=== PATIENT | female | born 1955 | race African-American/Black ===

== ENCOUNTER → 2017-02-27 | Outpatient (CLI) | payer MEDICARE, OTHER ==
--- NOTE | 2017-02-27 10:35 | RAD ---
Bone densitometry scan, 02/27/2017: History: Osteoporosis screening, ovarian failure The lumbar spine and right hip were examined utilizing a DEXA technique. The bone mineral density in the lumbar spine as measured from the L1-L4 levels is 1.88 g/sq cm. This yields a T score of 5.9 which is in the normal range. The total T score at the right hip is 2.9. IMPRESSION: Normal bone mineral density measurements.
== END | disposition home or self-care (01) ==
LOC: DXRAD 09:38
PROVIDERS: ATTEND Nurse Practitioner Family
DX: Z13.820 Encounter for screening for osteoporosis (principal); E28.39 Other primary ovarian failure; Z78.0 Asymptomatic menopausal state
CPT/HCPCS: 77080

== ENCOUNTER → 2017-11-08 | Outpatient (CLI) | payer MEDICARE, OTHER ==
--- NOTE | 2017-11-08 13:43 | RAD ---
Pelvis with both hips, 3 views, 11/08/2017: History: Bilateral hip pain There is severe narrowing of both hip joints with subchondral sclerosis, cyst formation and marginal spurring. No fracture or dislocation is identified. There are mild degenerative changes in the lower lumbar spine. IMPRESSION: Severe osteoarthritis at both hip joints.
== END | disposition home or self-care (01) ==
LOC: PMG 12:58
PROVIDERS: ATTEND Nurse Practitioner Family
DX: M16.0 Bilateral primary osteoarthritis of hip (principal)
CPT/HCPCS: 73521

== ENCOUNTER → 2018-06-25 | Outpatient (CLI) | payer MEDICARE, OTHER ==
--- NOTE | 2018-06-25 10:26 | CARD ---
MR#: [id number] Date of Study: 06/25/2018 Ordering Physician: LUBNA NEWELL, Referring Physician: LUBNA NEWELL, Tech: Vera Mo TAHIRA APPROVED REPORT EXAM: Two-dimensional and M-mode echocardiogram with Doppler and color Doppler. Other Information Quality : Technically LimitedHR: 85bpm Rhythm : NSRTechnically limited study due to body habitus. INDICATION Pre-Op 2D DIMENSIONS Left Atrium(2D)3.3 (1.6-4.0cm)IVSd1.4 (0.7-1.1cm) Aortic Root(2D)2.6 (2.0-3.7cm)LVDd4.0 (3.9-5.9cm) LVOT Diameter1.9 (1.8-2.4cm)PWd1.2 (0.7-1.1cm) LVDs2.4 (2.5-4.0cm)FS (%) 41.6 % SV52.6 mlLVEF(%)73.0 (>50%) M-Mode DIMENSIONS Left Atrium(MM)2.88 (2.5-4.0cm)Aortic Root3.23 (2.2-3.7cm) Aortic Valve AoV Peak Kendall.169.3cm/sAoV VTI33.4cm AO Peak GR.11.5mmHgLVOT Peak Kendall.101.8cm/s LVOT VTI 23.10cmAO Mean GR.6mmHg KULDIP (VMAX)1.69bf6MFI (VTI)1.96cm2 Mitral Valve MV E Teerscfz410.0cm/sMV DECEL [id number] MV A Gbflwfbk303.5cm/sE/A Ratio1.0 MV A Npwcdixf706vm Pulmonary Valve PV Peak Psygybbb098.2cm/sPV Peak Grad.4mmHg Pulmonary Vein S1 Eoctbnqu52.4cm/sD2 Rnyzmwcw81.3cm/s LEFT VENTRICLE The left ventricle is normal size. There is mild concentric left ventricular hypertrophy. Hyperdynami c left ventricular systolic function. The Ejection Fraction is 75%. There is normal LV segmental wall motion. Transmitral Doppler flow pattern is Grade II-pseudonormal filling dynamics. RIGHT VENTRICLE The right ventricle is normal size. There is normal right ventricular wall thickness. The right ventr icular systolic function is normal. ATRIA The left atrium size is normal. The right atrium size is normal. The atrial septum is aneurysmal. AORTIC VALVE The aortic valve is mildly calcified. The aortic valve is probably trileaflet. Doppler and Color Flow revealed no significant aortic regurgitation. There is no significant aortic valvular stenosis. MITRAL VALVE The mitral valve is calcified but opens well. There is no evidence of mitral valve prolapse. There is no mitral valve stenosis. Doppler and Color-flow revealed trace mitral regurgitation. TRICUSPID VALVE The tricuspid valve is normal in structure and function. Doppler and Color Flow revealed no tricuspid valve regurgitation noted. There is no tricuspid valve prolapse or vegetation. There is no tricuspid valve stenosis. PULMONIC VALVE Pulmonic valve not well visualized. GREAT VESSELS The aortic root is normal in size. The ascending aorta is normal in size. The IVC is normal in size a nd collapses >50% with inspiration. PERICARDIAL EFFUSION There is no evidence of significant pericardial effusion. Critical Notification Critical Value: No <Conclusion> Hyperdynamic left ventricular systolic function. The Ejection Fraction is 75%. There is normal LV segmental wall motion. Transmitral Doppler flow pattern is Grade II-pseudonormal filling dynamics. Doppler and Color-flow revealed trace mitral regurgitation. There is no evidence of significant pericardial effusion. Signed by : Brian Gilliland, Electronically Approved : 06/25/2018 10:25:31
== END | disposition home or self-care (01) ==
LOC: ECHO 09:32
PROVIDERS: ATTEND Internal Medicine Cardiovascular Disease
DX: Z01.810 Encounter for preprocedural cardiovascular examination (principal); I51.7 Cardiomegaly
CPT/HCPCS: 93306

== ENCOUNTER → 2018-11-12 | Outpatient (CLI) | payer MEDICARE, OTHER ==
--- NOTE | 2018-11-12 10:03 | RAD ---
Abdominal aortic ultrasound, 11/12/2018: HISTORY: Family history of abdominal aortic aneurysm Duplex evaluation of the abdominal aorta was performed including grayscale, color-flow and spectral Doppler analysis. There are mild scattered atherosclerotic plaques. There is no evidence of aneurysm or high-grade stenosis. IMPRESSION: 1. Mild atherosclerotic plaquing. 2. No evidence of abdominal aortic aneurysm. Electronically signed by: Steve Bragg MD (11/12/2018 10:00 AM) [facility]
== END | disposition home or self-care (01) ==
LOC: US 08:50
PROVIDERS: ATTEND Registered Nurse
DX: I70.0 Atherosclerosis of aorta (principal); Z82.49 Family history of ischemic heart disease and other diseases of the circulatory system
CPT/HCPCS: 76770

== ENCOUNTER → 2021-02-04 | Outpatient (CLI) | payer MEDICARE, OTHER ==
--- NOTE | 2021-02-04 14:09 | RAD ---
MG 2D BILAT SCREENING 02/04/2021 11:00 AM INDICATION: Asymptomatic screening mammogram. COMPARISON: 08/11/2016 TECHNIQUE: 2D CC and MLO projections were obtained of each breast. FINDINGS: Breast density: Category B: There are scattered areas of fibroglandular density. Right breast: There is an asymmetry in the upper right breast at middle to posterior depth, approxima tely 12.5 cm from the nipple. Spot compression right MLO view as well as possible ultrasound could be of benefit. Left breast: There are no suspicious microcalcifications, masses or areas of architectural distortion . Left mammogram is compared to prior examinations appears unchanged. IMPRESSION: 1. Incomplete right mammogram. Additional imaging is recommended as above. 2. Negative left mammogram. BI-RADS category: 0; Incomplete Recommendations: Recommend additional imaging for which the patient will need to be called back. Electronically signed by: Rafaela Kelly MD (02/04/2021 2:07 PM) [email or web address]
== END ==
LOC: MAMMO 10:52
PROVIDERS: ATTEND Family Medicine
DX: Z12.31 Encounter for screening mammogram for malignant neoplasm of breast (principal)
CPT/HCPCS: 77067

== ENCOUNTER → 2021-02-25 | Outpatient (CLI) | payer MEDICARE, OTHER ==
--- NOTE | 2021-02-25 13:27 | RAD ---
PROCEDURE: MG DIAGNOSTICUNILAT MAMMO HISTORY: The patient is 65 years old and is seen for Reason: ABNORMAL MAMMOGRAM / Spl. Instructions: / History: . COMPARISON: February 04, 2021 and August 11, 2016 TECHNIQUE: CC and MLO views of both breasts were obtained. Images were processed by the [employer] computer-aided detection system. DENSITY: There are scattered fibroglandular densities. FINDINGS: Asymmetry within the right breast is less apparent on spot compression views. IMPRESSION: Asymmetry within the right breast is less apparent on spot compression views, likely overlapping fibr oglandular tissue. Recommend return to annual screening. Recommend annual screening mammograms per [place] [employer] guidelines. She will be due in one year. BI-RADS category 2 Benign Patient entered into a reminder system for annual screening mammogram. Electronically signed by: Ward Moncada DO (02/25/2021 1:24 PM) [email or web address]
== END ==
LOC: MAMMO 12:48
PROVIDERS: ATTEND Family Medicine
DX: R92.2 Inconclusive mammogram (principal)
CPT/HCPCS: 77065